=== PATIENT | female | born 1945 | race Hispanic/Latino ===

== ENCOUNTER → 2022-07-13 | Outpatient (CLI) | payer OTHER ==
[2022-07-13 13:09] LABS: CREATININE 1.5 mg/dL (0.5-1.5); POTASSIUM 3.6 mmol/L (3.5-5.1)
== END | disposition home or self-care (01) ==
LOC: LAB 09:56
PROVIDERS: ATTEND Internal Medicine Cardiovascular Disease
DX: I50.21 Acute systolic (congestive) heart failure (principal); E78.5 Hyperlipidemia, unspecified
CPT/HCPCS: 36415; 80048; 83880; 85378

== ENCOUNTER 2022-08-09 01:22 | Emergency (ER) | payer OTHER ==
[~2022-08-09] VITALS: Ht 157.5 cm; Wt 63.5 kg
[2022-08-09] MEDS ORDERED: ROCURONIUM BROMIDE 10MG/1ML 5ML VL IV ONE (01:23)
[2022-08-09] MEDS ORDERED: ETOMIDATE 20MG VIAL IVP ONE (01:23)
[2022-08-09] MEDS ORDERED: FUROSEMIDE 40MG VIAL IV ONE (01:30)
[2022-08-09] MEDS ORDERED: ASPIRIN 325MG TAB PO ONE (01:30)
[2022-08-09] MEDS ORDERED: METOPROLOL TARTRATE 1 MG/ML 5ML VIAL IV ONE (01:30)
[2022-08-09 01:39] LABS: BASOPHILS % (AUTO) 0.4 % (0.0-5.0); EOSINOPHILS % (AUTO) 0.1 % (0.0-8.0); HEMATOCRIT 37.2 % (36-48); LYMPHOCYTES % (AUTO) 7.2 % (21.0-51.0); MEAN CORPUSCULAR HEMOGLOBIN 26.3 pg (27.0-33.0); MEAN CORPUSCULAR HGB CONC 32.3 g/dL (32.0-36.0); MEAN CORPUSCULAR VOLUME 81.4 fL (79-99); NEUTROPHILS % (AUTO) 81.9 % (40.0-77.0); PLATELET COUNT (AUTO) 177 K/uL (130-400); RED BLOOD CELL COUNT(AUTO) 4.57 MIL/uL (4.00-5.50); RED CELL DISTRIBUTION WIDTH 14.8 % (11.0-15.5); WHITE BLOOD COUNT (AUTO) 13.9 K/uL (4.8-10.8)
[2022-08-09 01:46] LABS: CREATININE 2.2 mg/dL (0.5-1.5); POTASSIUM 3.8 mmol/L (3.5-5.1)
[2022-08-09 01:47] LABS: INR 1.15 (0.85-1.15); PROTHROMBIN TIME 12.4 SEC (9.6-11.6)
[2022-08-09] MEDS ORDERED: METOPROLOL TARTRATE 1 MG/ML 5ML VIAL IV STA (01:48)
[2022-08-09 01:50] LABS: ALBUMIN 3.5 g/dL (3.5-5.0); MAGNESIUM 2.3 mg/dL (1.80-2.40); TOTAL PROTEIN, SERUM 6.6 g/dL (6.0-8.3)
[2022-08-09] MEDS ORDERED: AMIODARONE 150MG VIAL 150 MG in DEXTROSE 5%-WATER 100 ML IV STA (01:51)
[2022-08-09] MEDS ORDERED: AMIODARONE 150MG VIAL ONE (01:52)
[2022-08-09 02:02] LABS: B-TYPE NATRIURETIC PEPTIDE 2520 pg/mL (0-100)
[2022-08-09] MEDS ORDERED: NOREPINEPHRIN 4MG/NS 250ML 250 ML IV ONE (02:07)
[2022-08-09] MEDS ORDERED: EPINEPHRINE 1 MG/ML 30ML VIAL IJ ONE (02:14)
[2022-08-09] MEDS ORDERED: PHENYLEPHRINE HCL 10 MG/ML 1ML VIAL IV ONE (02:16)
[2022-08-09] MEDS ORDERED: IOHEXOL 350 MG/ML 100ML INFUS..BTL IV ONE (02:40)
[2022-08-09] MEDS ORDERED: EPINEPHRINE PF 1MG (1:1,000) 1 MG in 0.9% NACL 250ML 250 ML IV SCH (04:00)
[2022-08-09] MEDS ORDERED: PHENYLEPHRINE HCL 50 MG in 0.9% NACL 250ML 250 ML IV PRN (04:00)
[2022-08-09] MEDS ORDERED: NOREPINEPHRIN 4MG/NS 250ML 250 ML IV SCH (04:00)
[2022-08-09] MEDS ORDERED: PHENYLEPHRINE HCL 10 MG in 0.9% NACL 250ML 250 ML IV PRN (04:00)
[2022-08-09] MEDS ORDERED: EPINEPHRINE PF 1MG (1:1,000) 10 MG in 0.9% NACL 250ML 250 ML IV SCH (04:00)
[2022-08-09 04:38] LABS: ABG BASE EXCESS -19.6 mmol/L (-2.0-3.0); ABG HCO3 10.2 mmol/L (21.0-28.0); ABG OXYGEN SATURATION 98.7 % (95.0-99.0); ABG PCO2 37 mmHg (32-45)
[2022-08-09] MEDS ORDERED: SODIUM BICARB 50MEQ 50ML VIAL 100 ML ONE (04:42)
[2022-08-09 05:30] VITALS: BP 142/68
[2022-08-09] MEDS ORDERED: SODIUM BICARB 50MEQ 50ML VIAL IV ONE (07:00)
== END 2022-08-09 05:45 | disposition short-term general hospital (02) ==
LOC: EDH 01:22
DX: I48.20 Chronic atrial fibrillation, unspecified (principal); J96.00 Acute respiratory failure, unspecified whether with hypoxia or hypercapnia; I95.9 Hypotension, unspecified; I11.0 Hypertensive heart disease with heart failure; I50.9 Heart failure, unspecified; E11.9 Type 2 diabetes mellitus without complications; Z20.822 Contact with and (suspected) exposure to COVID-19; Z79.899 Other long term (current) drug therapy
CPT/HCPCS: 82435; 82947; 83735; 84484; 84132; 84295; 80053; 82803; 83880; 85025; 85378; 85610; 85018; 82948; 83605; 36415; 87635; 71045 ×2; 70450; 70496; 70498; 96374; 99291; 96375; 93005 ×2; 31500; 36600; C9803; J3490 ×6; J0171; J1940; J2370; J0282; Q9967; A9900; 94002; J7050; J7060